=== PATIENT | female | born 1955 | race Caucasian/White ===

== ENCOUNTER 2018-11-10 01:26 | Emergency (ER) | payer BC, SELFPAY ==
[2018-11-10] MEDS ORDERED: KETOROLAC 30 MG/ML INJ ONE (03:02)
[2018-11-10] MEDS ORDERED: HYDROMORPHONE HCL 0.5 MG/0.5 ML INJ ONE (04:13)
--- NOTE | 2018-11-10 04:25 | ER ---
Nurse's Notes [facility] Name: Georgette Mccrary Age: 63 yrs Sex: Female : 1955 Arrival Date: 11/10/2018 Time: :28 Bed 8 Private MD: Diagnosis: Cauda equina syndrome Presentation: 11/10 01:44 Presenting complaint: Patient states: I have Sciatica. Pain started this morning when I rv went to work. started having some cold sweats and urge to poop all the time. I took a total of 4 ibuprofen today, pain got better. at about 2 hours before, pain came back and now I feel numb down there. Transition of care: patient was not received from another setting of care. Onset of symptoms was November 09, 2018 at 08:00. Risk Assessment: Do you want to hurt yourself or someone else? Patient reports no desire to harm self or others. Initial Sepsis Screen: Does the patient meet any 2 criteria? No. Patient's initial sepsis screen is negative. Does the patient have a suspected source of infection? No. Patient's initial sepsis screen is negative. Care prior to arrival: None. 01:44 Method Of Arrival: Ambulatory rv 01:44 Acuity: FERNIE 3 rv Triage Assessment: 01:47 General: Appears in no apparent distress. uncomfortable, ill, Behavior is calm, rv cooperative. Pain: Complains of pain in genital area and rectum. EENT: No signs and/or symptoms were reported regarding the EENT system. Neuro: Level of Consciousness is awake, alert, obeys commands, Oriented to person, place, time, situation. Cardiovascular: Capillary refill < 3 seconds. Respiratory: Airway is patent. GI: Reports urgency to poop and urinate. : No signs and/or symptoms were reported regarding the genitourinary system. Derm: Skin is intact. Musculoskeletal: No signs and/or symptoms reported regarding the musculoskeletal system. Historical: - Allergies: 01:47 PENICILLINS; rv 01:47 Amoxicillin; rv - Home Meds: :47 None [Active]; rv - PMHx: 01:47 COPD; rv - PSHx: 01:47 ; rv - Immunization history:: Adult Immunizations up to date, Flu vaccine is up to date. - Social history:: Smoking status: Patient uses tobacco products, smokes one pack cigarettes per day. - Ebola Screening: : No symptoms or risks identified at this time. Screenin:49 Abuse screen: Denies threats or abuse. Denies injuries from another. Nutritional rv screening: No deficits noted. Tuberculosis screening: No symptoms or risk factors identified. Fall Risk None identified. Assessment: 03:02 General: Appears in no apparent distress. uncomfortable, Behavior is calm, cooperative, tl1 appropriate for age. Pain: Complains of pain in rectum, vaginal area. Neuro: No deficits noted. Level of Consciousness is awake, alert, obeys commands. Cardiovascular: Denies chest pain. Respiratory: Airway is patent Trachea midline Respiratory effort is even, unlabored, Breath sounds are clear bilaterally. GI: Abdomen is non-distended, Bowel sounds present X 4 quads. Reports urge to defecate. : Reports urgency. EENT: No signs and/or symptoms were reported regarding the EENT system. Derm: No signs and/or symptoms reported regarding the dermatologic system. Musculoskeletal: No signs and/or symptoms reported regarding the musculoskeletal system. Vital Signs: 01:50 BP 152 / 88; Pulse 81; Resp 16; Temp 97.5; Pulse Ox 99% ; Weight 61.23 kg; Height 5 ft. bb 4 in. (162.56 cm); 03:05 BP 121 / 91; Pulse 85; Resp 16; Pulse Ox 97% on R/A; Pain 6/10; tl1 03:48 BP 125 / 63; Pulse 79; Pulse Ox 97% on R/A; tl1 04:22 Temp 97.5; Pain 2/10; tl1 01:50 Body Mass Index 23.17 (61.23 kg, 162.56 cm) bb ED Course: 01:28 Patient arrived in ED. es 01:46 Triage completed. rv 01:49 Arm band placed on left wrist. rv 01:49 Patient has correct armband on for positive identification. Placed in gown. Bed in low rv position. Call light in reach. Side rails up X 1. Adult w/ patient. Pulse ox on. NIBP on. 01:52 George Lee MD is Attending Physician. gs 02:55 Inserted saline lock: 22 gauge in right forearm, using aseptic technique. oe 03:01 Bibi Schwartz RN is Primary Nurse. tl1 04:33 No provider procedures requiring assistance completed. IV discontinued, intact, tl1 bleeding controlled, No redness/swelling at site. Pressure dressing applied. Administered Medications: 03:01 Drug: TORadol - Ketorolac 15 mg Route: IVP; Infused Over: 2 mins; Site: right wrist; tl1 04:35 Follow up: Response: No adverse reaction; Marked relief of symptoms; Pain is decreased tl1 04:03 Drug: Dilaudid 0.5 mg Route: IVP; Infused Over: 2 mins; Site: right wrist; tl1 04:35 Follow up: Response: No adverse reaction; Marked relief of symptoms; Pain is decreased tl1 Outcome: 04:24 ER care complete, transfer ordered by . 04:34 Transferred to [facility], Transfer form completed. tl1 04:34 Transferred Note: Ok to travel by private vehicle per ER physician Dr Lee 04:34 Condition: stable 04:34 Instructed on the need for transfer. 04:52 Patient left the ED. tl1 Signatures: Nancie Blue Brenda RN RN Bibi Schwartz RN RN tl1 Dave Mckeon Gregory, MD MD gs Vicente, Ronaldo, RN RN rv
--- NOTE | 2018-11-10 04:25 | EDPHYS ---
Physician Documentation [facility] Name: Georgette Mccrary Age: 63 yrs Sex: Female : 1955 Arrival Date: 11/10/2018 Time: :28 Bed 8 Private MD: ED Physician George Lee HPI: 11/10 04:18 This 63 yrs old Female presents to ER via Ambulatory with complaints of gs VAGINAL PAIN, BUTTOCK PAIN, NECK PAIN. 04:18 The symptoms are located in the left low back. Onset: The symptoms/episode gs began/occurred yesterday. The pain radiates to the left quadriceps. Associated signs and symptoms: Pertinent positives: bowel incontinence, numbness, Pertinent negatives: urinary retention. Modifying factors: the patient symptoms are aggravated by any movement. Severity of symptoms: At their worst the symptoms were severe, in the emergency department the symptoms are unchanged. Historical: - Allergies: 01:47 PENICILLINS; rv 01:47 Amoxicillin; rv - Home Meds: 01:47 None [Active]; rv - PMHx: 01:47 COPD; rv - PSHx: 01:47 ; rv - Immunization history:: Adult Immunizations up to date, Flu vaccine is up to date. - Social history:: Smoking status: Patient uses tobacco products, smokes one pack cigarettes per day. - Ebola Screening: : No symptoms or risks identified at this time. ROS: 04:18 All other systems are negative. gs Exam: 04:18 Head/Face: Normocephalic, atraumatic. Eyes: Pupils equal round and reactive to light, gs extra-ocular motions intact. Lids and lashes normal. Conjunctiva and sclera are non-icteric and not injected. Cornea within normal limits. Periorbital areas with no swelling, redness, or edema. ENT: Nares patent. No nasal discharge, no septal abnormalities noted. Tympanic membranes are normal and external auditory canals are clear. Oropharynx with no redness, swelling, or masses, exudates, or evidence of obstruction, uvula midline. Mucous membranes moist. Neck: Trachea midline, no thyromegaly or masses palpated, and no cervical lymphadenopathy. Supple, full range of motion without nuchal rigidity, or vertebral point tenderness. No Meningismus. Chest/axilla: Normal chest wall appearance and motion. Nontender with no deformity. No lesions are appreciated. Cardiovascular: Regular rate and rhythm with a normal S1 and S2. No gallops, murmurs, or rubs. Normal PMI, no JVD. No pulse deficits. Respiratory: Lungs have equal breath sounds bilaterally, clear to auscultation and percussion. No rales, rhonchi or wheezes noted. No increased work of breathing, no retractions or nasal flaring. Abdomen/GI: Soft, non-tender, with normal bowel sounds. No distension or tympany. No guarding or rebound. No evidence of tenderness throughout. Back: No spinal tenderness. No costovertebral tenderness. Full range of motion. Skin: Warm, dry with normal turgor. Normal color with no rashes, no lesions, and no evidence of cellulitis. MS/ Extremity: Pulses equal, no cyanosis. Neurovascular intact. Full, normal range of motion. 04:18 Constitutional: The patient appears alert, awake, uncomfortable. 04:18 Neuro: Motor: strength is normal, Sensation: numbness, that is moderate, of the left inner thigh, pin prick is decreased in the left gluteal fold, Deep tendon reflexes are 1 (trace) + in the right Achilles and left Achilles, 3+ (brisk) in the right patellar and left patellar, seizure activity. 04:18 Neuro: Sensation: pin prick is decreased in the gluteal cleft. Vital Signs: 01:50 BP 152 / 88; Pulse 81; Resp 16; Temp 97.5; Pulse Ox 99% ; Weight 61.23 kg; Height 5 ft. bb 4 in. (162.56 cm); 03:05 BP 121 / 91; Pulse 85; Resp 16; Pulse Ox 97% on R/A; Pain 6/10; tl1 03:48 BP 125 / 63; Pulse 79; Pulse Ox 97% on R/A; tl1 04:22 Temp 97.5; Pain 2/10; tl1 01:50 Body Mass Index 23.17 (61.23 kg, 162.56 cm) bb MDM: 01:52 Patient medically screened. 04:18 Differential diagnosis: Ligament Injury ruptured disc, cauda equina. Data reviewed: vital signs, nurses notes. Counseling: I had a detailed discussion with the patient and/or guardian regarding: the historical points, exam findings, and any diagnostic results supporting the discharge/admit diagnosis, the need to transfer to another facility. ED course: discussed need for mri to make diagnosis concern for left perianal numbness. Administered Medications: 03:01 Drug: TORadol - Ketorolac 15 mg Route: IVP; Infused Over: 2 mins; Site: right wrist; tl1 04:35 Follow up: Response: No adverse reaction; Marked relief of symptoms; Pain is decreased tl1 04:03 Drug: Dilaudid 0.5 mg Route: IVP; Infused Over: 2 mins; Site: right wrist; tl1 04:35 Follow up: Response: No adverse reaction; Marked relief of symptoms; Pain is decreased tl1 Disposition: 11/10/18 04:24 Transfer ordered to [facility]. Diagnosis is Cauda equina syndrome. - Reason for transfer: Higher level of care. - Accepting physician is reid. - Condition is Stable. - Problem is new. - Symptoms are unchanged. Signatures: Bibi Schwartz RN RN tl1 George Lee MD MD Dennys Sr RN RN rv Corrections: (The following items were deleted from the chart) 04:52 04:24 11/10/2018 04:24 Transfer ordered to [facility]. Diagnosis is Cauda equina tl1 syndrome. Reason for transfer: Higher level of care. Accepting physician is reid. Condition is Stable. Problem is new. Symptoms are unchanged.
[2018-11-10 05:06] VITALS: TEMP 97.5
[2018-11-10 05:07] VITALS: O2SAT 97
[2018-11-10 05:08] VITALS: BP 125/63
== END 2018-11-10 04:52 | disposition short-term general hospital (02) ==
LOC: ER 01:26
DX: G83.4 Cauda equina syndrome (principal); J44.9 Chronic obstructive pulmonary disease, unspecified; Z88.0 Allergy status to penicillin; F17.210 Nicotine dependence, cigarettes, uncomplicated
CPT/HCPCS: 96374; 96375; 99285; J1170